=== PATIENT | female | born 1995 | race Caucasian/White ===

== ENCOUNTER 2017-12-17 19:51 | Inpatient (IN) | payer OTHER ==
[2017-12-17] MEDS ORDERED: Carboprost Tromethamine 250 MCG/1 ML Amp IM PRN (20:24)
[2017-12-17] MEDS ORDERED: Lidocaine 1% 50 ML MDV INJECT PRN (20:24)
[2017-12-17] MEDS ORDERED: Tranexamic Acid 1,000 MG in Sodium Chloride 0.9% 100 ML IV PRN (20:24)
[2017-12-17] MEDS ORDERED: Sodium Chloride 0.9% 2.5 ML Syringe FLUSH PRN (20:24)
[2017-12-17] MEDS ORDERED: Water For Irrigation,Sterile 1,000 ML Container IRR PRN (20:24)
[2017-12-17] MEDS ORDERED: Ampicillin 2 GM in Sodium Chloride 0.9% 100 ML IV ONE (20:24)
[2017-12-17] MEDS ORDERED: Misoprostol 200 MCG Tab PO PRN (20:24)
[2017-12-17] MEDS ORDERED: Methylergonovine 0.2 MG/1 ML Amp IM PRN (20:24)
[2017-12-17] MEDS ORDERED: Sodium Chloride 0.9% 10 ML Syringe FLUSH PRN (20:24)
[2017-12-17] MEDS ORDERED: Nalbuphine 10 MG/1 ML Vial IVPUSH PRN (20:24)
[2017-12-17] MEDS ORDERED: Butorphanol 1 MG/ML SDV IVPUSH PRN (20:24)
[2017-12-17] MEDS ORDERED: Terbutaline 1 MG/ML SDV SUBCUT PRN (20:27)
[2017-12-17] MEDS ORDERED: Misoprostol 25 MCG (1/4 of 100 MCG) Tab VAG PRN (20:27)
[2017-12-17] MEDS ORDERED: Misoprostol 25 MCG (1/4 of 100 MCG) Tab VAG ONE (20:30)
[2017-12-17] MEDS ORDERED: Lactated Ringers 1,000 ML IV SCH (20:30)
[2017-12-18] MEDS: Ampicillin 1 GM in Sodium Chloride 0.9% 50 ML IV SCH ×3 (01:29→09:29)
[2017-12-18] MEDS ORDERED: Misoprostol 25 MCG (1/4 of 100 MCG) Tab VAG PRN (03:00)
[2017-12-18] MEDS ORDERED: Oxytocin/0.9 % Sodium Chloride 30 UNIT/500 ML BAG IV SCH (05:00)
[2017-12-18] MEDS ORDERED: fentaNYL 100 MCG/2 ML SDV ONE (10:26)
--- NOTE | 2017-12-18 11:27 | PCM.PREANE ---
Preanesthetic Assessment - Procedure Proposed Procedure: labor epidural placement and dosing - Anesthesia/Transfusion/Family Hx Anesthesia History: Prior Anesthesia Without Reaction Family History of Anesthesia Reaction: No Transfusion History: No Prior Transfusion(s) Additional History: Active labor; s/p single dose stadol - not helpful per patient; present - Review of Systems General: Other (active labor) Pulmonary: No Symptoms Cardiovascular: No Symptoms Gastrointestinal: No Symptoms, Other (GERD of ) Neurological: Other (labor) Other: Reports: None - Physical Assessment NPO Status Date: 12/17/17 NPO Status Time: 23:00 Height: 5 ft 5 in Weight: 160 lb ASA Class: 2 Mental Status: Alert & Oriented x3 Airway Class: Mallampati = 1 Dentition: Reports: Normal Dentition Thyro-Mental Finger Breadths: 3 Mouth Opening Finger Breadths: 3 ROM/Head Extension: Full Lungs: Clear to Auscultation, Normal Respiratory Effort Cardiovascular: Regular Rate, Regular Rhythm, No Murmurs - Lab Values: Laboratory Last Values WBC 6.73 K/uL (4.0-11.0) 12/17/17 20:37 RBC 3.92 M/uL (4.30-5.90) L 12/17/17 20:37 Hgb 12.4 g/dL (12.0-16.0) 12/17/17 20:37 Hct 35.5 % (36.0-46.0) L 12/17/17 20:37 MCV 90.6 fL (80.0-98.0) 12/17/17 20:37 MCH 31.6 pg (27.0-32.0) 12/17/17 20:37 MCHC 34.9 g/dL (31.0-37.0) 12/17/17 20:37 RDW Std Deviation 41.9 fl (28.0-62.0) 12/17/17 20:37 RDW Coeff of Roosevelt 13 % (11.0-15.0) 12/17/17 20:37 Plt Count 204 K/uL (150-400) 12/17/17 20:37 MPV 10.60 fL (7.40-12.00) 12/17/17 20:37 Nucleated RBC % 0.0 /100WBC 12/17/17 20:37 Nucleated RBCs # 0 K/uL 12/17/17 20:37 Blood Type A POSITIVE 12/17/17 20:37 Antibody Screen NEGATIVE 12/17/17 20:37 - Allergies Allergies/Adverse Reactions: Allergies Allergy/AdvReac Type Severity Reaction Status Date / Time No Known Allergies Allergy Verified 12/17/17 20:24 - Blood Blood Available: No Product(s) Available: None - Anesthesia Plan Pre-Op Medication Ordered: Other (stadol) - Acknowledgements Anesthesia Type Planned: Epidural Pt an Appropriate Candidate for the Planned Anesthesia: Yes Alternatives and Risks of Anesthesia Discussed w Pt/Guardian: Yes Pt/Guardian Understands and Agrees with Anesthesia Plan: Yes PreAnesthesia Questionnaire HEENT History: Reports: None Respiratory History: Reports: None Gastrointestinal History: Reports: None [employer] History: Reports: None Musculoskeletal History: Reports: None Neurological History: Reports: None Psychiatric History: Reports: None Endocrine/Metabolic History: Reports: None Hematologic History: Reports: None Immunologic History: Reports: None Oncologic (Cancer) History: Reports: None Dermatologic History: Reports: None - Infectious Disease History Infectious Disease History: Reports: Chicken Pox - Past Surgical History Head Surgeries/Procedures: Reports: None - SUBSTANCE USE Smoking Status *Q: Never Smoker Second Hand Smoke Exposure: No Recreational Drug Use History: No - CURRENT (IN HOUSE) MEDS Current Meds: Current Medications Butorphanol Tartrate (Stadol) 1 mg IVPUSH Q1H PRN PRN Reason: Pain Last Admin: 12/18/17 09:13 Dose: 1 mg Carboprost Tromethamine (Hemabate Ds) 250 mcg IM ASDIRECTED PRN PRN Reason: Post Hemorrhage Lactated Ringer's (Ringers, Lactated) 1,000 mls @ 150 mls/hr IV ASDIRECTED NICOLAS Last Admin: 12/18/17 10:11 Dose: 200 mls/hr Tranexamic Acid 1,000 mg/ (Sodium Chloride) 110 mls @ 660 mls/hr IV ONETIME PRN PRN Reason: Bleeding Oxytocin/Sodium Chloride (Oxytocin 30 Unit/500 Ml-Ns) 30 unit in 500 mls @ 2 mls/hr IV TITRATE NICOLAS; Protocol Last Titration: 12/18/17 08:45 Dose: 4 munits/min, 4 mls/hr Ampicillin Sodium 1 gm/ Sodium (Chloride) 50 mls @ 100 mls/hr IV Q4H NICOLAS Last Admin: 12/18/17 09:29 Dose: 100 mls/hr Lidocaine HCl (Xylocaine 1%) 50 ml INJECT .ONCE PRN PRN Reason: Laceration repair Methylergonovine Maleate (Methergine) 0.2 mg IM ASDIRECTED PRN PRN Reason: Post Hemorrhage Misoprostol (Cytotec) 200 mcg PO .ONCE PRN PRN Reason: Post Hemorrhage Misoprostol (Cytotec) 25 mcg VAG Q6H PRN PRN Reason: Other Last Admin: 12/18/17 03:25 Dose: 25 mcg Nalbuphine HCl (Nubain) 10 mg IVPUSH Q1H PRN PRN Reason: Pain (severe 7-10) Sodium Chloride (Saline Flush) 10 ml FLUSH ASDIRECTED PRN PRN Reason: Keep Vein Open Sodium Chloride (Saline Flush) 2.5 ml FLUSH ASDIRECTED PRN PRN Reason: Keep Vein Open Sterile Water (Sterile Water For Irrigation) 1,000 ml IRR ASDIRECTED PRN PRN Reason: delivery Terbutaline Sulfate (Brethine) 0.25 mg SUBCUT ASDIRECTED PRN PRN Reason: Tacysystole Discontinued Medications Fentanyl (Sublimaze) Confirm Administered Dose 100 mcg .ROUTE .STK-MED ONE Stop: 12/18/17 10:27 Ampicillin Sodium 2 gm/ Sodium (Chloride) 100 mls @ 200 mls/hr IV ONETIME ONE Stop: 12/17/17 20:53 Last Admin: 12/17/17 21:17 Dose: 200 mls/hr Fentanyl/Bupivacaine HCl (Kynweknp-Zdtgq-Wj 2 Mcg/Ml-0.125%) Confirm Administered Dose 100 mls @ as directed EP .STK-MED ONE Stop: 12/18/17 10:28 Misoprostol (Cytotec) 25 mcg VAG ONETIME ONE Stop: 12/17/17 20:31 Last Admin: 12/17/17 21:10 Dose: 25 mcg
--- NOTE | 2017-12-18 11:32 | PCM.SN ---
- Free Text/Narrative Note: See anesthesia record, [facility] recorded vitals and notes per RN during my bedside attendance. Pump settings and start of continuous infusion done. Lobor determined complete dilation and call to obstetrition made by RN. Stable with fluid iv bolus due to a few minutes of mild nausea and mild BP drop with clearing of effect.
--- NOTE | 2017-12-18 12:18 | PCM.DEL ---
L & D Note - General Info Date of Service: 12/18/17 Mother's Due Date: 12/16/17 - Delivery Note Labor: Induced by ARM, Induced by Oxytocin Cervical Ripening Method: Misoprostil Delivery Outcome: Livebirth Delivery Method: Spontaneous Vaginal Delivery-Single Presentation: Left Occiput Anterior (STEFFANY) Nuchal Cord: None Prep: Povidone-Iodine (Betadine, Other Anesthesia Type: Epidural Amniotic Fluid Description: Clear Episiotomy Type: None Laceration: None Placenta: Intact, Spontaneous Cord: 3 Vessels Estimated Blood Loss: 200 Resuscitation Needed: No : Bulb Syringe Score 1 min: 10 Score 5 min: 10 Second Stage Interventions: Reports: Encouragement Given, Pushing Effectively, Pushing, Pulls Own Legs Back - Patient Data Weight - Most Recent: 72.575 kg Lab Results Last 24 Hours: Laboratory Results - last 24 hr 12/17/17 12/17/17 Range/Units 20:37 20:37 WBC 6.73 (4.0-11.0) K/uL RBC 3.92 L (4.30-5.90) M/uL Hgb 12.4 (12.0-16.0) g/dL Hct 35.5 L (36.0-46.0) % MCV 90.6 (80.0-98.0) fL MCH 31.6 (27.0-32.0) pg MCHC 34.9 (31.0-37.0) g/dL RDW Std Deviation 41.9 (28.0-62.0) fl RDW Coeff of Roosevelt 13 (11.0-15.0) % Plt Count 204 (150-400) K/uL MPV 10.60 (7.40-12.00) fL Nucleated RBC % 0.0 /100WBC Nucleated RBCs # 0 K/uL Blood Type A POSITIVE Antibody Screen NEGATIVE Med Orders - Current: Current Medications Butorphanol Tartrate (Stadol) 1 mg IVPUSH Q1H PRN PRN Reason: Pain Last Admin: 12/18/17 09:13 Dose: 1 mg Carboprost Tromethamine (Hemabate Ds) 250 mcg IM ASDIRECTED PRN PRN Reason: Post Hemorrhage Lactated Ringer's (Ringers, Lactated) 1,000 mls @ 150 mls/hr IV ASDIRECTED NICOLAS Last Admin: 12/18/17 10:11 Dose: 200 mls/hr Tranexamic Acid 1,000 mg/ (Sodium Chloride) 110 mls @ 660 mls/hr IV ONETIME PRN PRN Reason: Bleeding Oxytocin/Sodium Chloride (Oxytocin 30 Unit/500 Ml-Ns) 30 unit in 500 mls @ 2 mls/hr IV TITRATE NICOLAS; Protocol Last Titration: 12/18/17 08:45 Dose: 4 munits/min, 4 mls/hr Ampicillin Sodium 1 gm/ Sodium (Chloride) 50 mls @ 100 mls/hr IV Q4H NICOLAS Last Admin: 12/18/17 09:29 Dose: 100 mls/hr Lidocaine HCl (Xylocaine 1%) 50 ml INJECT .ONCE PRN PRN Reason: Laceration repair Methylergonovine Maleate (Methergine) 0.2 mg IM ASDIRECTED PRN PRN Reason: Post Hemorrhage Misoprostol (Cytotec) 200 mcg PO .ONCE PRN PRN Reason: Post Hemorrhage Misoprostol (Cytotec) 25 mcg VAG Q6H PRN PRN Reason: Other Last Admin: 12/18/17 03:25 Dose: 25 mcg Nalbuphine HCl (Nubain) 10 mg IVPUSH Q1H PRN PRN Reason: Pain (severe 7-10) Sodium Chloride (Saline Flush) 10 ml FLUSH ASDIRECTED PRN PRN Reason: Keep Vein Open Sodium Chloride (Saline Flush) 2.5 ml FLUSH ASDIRECTED PRN PRN Reason: Keep Vein Open Sterile Water (Sterile Water For Irrigation) 1,000 ml IRR ASDIRECTED PRN PRN Reason: delivery Terbutaline Sulfate (Brethine) 0.25 mg SUBCUT ASDIRECTED PRN PRN Reason: Tacysystole Discontinued Medications Fentanyl (Sublimaze) Confirm Administered Dose 100 mcg .ROUTE .STK-MED ONE Stop: 12/18/17 10:27 Ampicillin Sodium 2 gm/ Sodium (Chloride) 100 mls @ 200 mls/hr IV ONETIME ONE Stop: 12/17/17 20:53 Last Admin: 12/17/17 21:17 Dose: 200 mls/hr Fentanyl/Bupivacaine HCl (Toyjrbxv-Yxbct-Mj 2 Mcg/Ml-0.125%) Confirm Administered Dose 100 mls @ as directed EP .STK-MED ONE Stop: 12/18/17 10:28 Misoprostol (Cytotec) 25 mcg VAG ONETIME ONE Stop: 12/17/17 20:31 Last Admin: 12/17/17 21:10 Dose: 25 mcg - Problem List & Annotations (1) Vaginal delivery SNOMED Code(s): 935303394 Code(s): O80 - ENCOUNTER FOR FULL-TERM UNCOMPLICATED DELIVERY Status: Acute Current Visit: Yes - Problem List Review Problem List Initiated/Reviewed/Updated: Yes - My Orders Last 24 Hours: My Active Orders 12/17/17 20:24 Patient Status [ADT] Routine Heart Tones [RC] CONTINUOUS Non Stress Test [RC] PER UNIT ROUTINE May Shower [RC] ASDIRECTED Notify Provider [RC] PRN Up ad Zhane [RC] ASDIRECTED Vaginal Exam [RC] PRN Vital Signs [RC] PER UNIT ROUTINE Butorphanol [Stadol] 1 mg IVPUSH Q1H PRN Carboprost Tromethamine [Hemabate DS] 250 mcg IM ASDIRECTED PRN Lidocaine 1% [Xylocaine 1%] 50 ml INJECT .ONCE PRN Methylergonovine [Methergine] 0.2 mg IM ASDIRECTED PRN Misoprostol [Cytotec] 200 mcg PO .ONCE PRN Nalbuphine [Nubain] 10 mg IVPUSH Q1H PRN Sodium Chloride 0.9% [Saline Flush] 10 ml FLUSH ASDIRECTED PRN Sodium Chloride 0.9% [Saline Flush] 2.5 ml FLUSH ASDIRECTED PRN Tranexamic Acid [Cyklokapron] 1,000 mg Sodium Chloride 0.9% [Normal Saline] 100 ml IV ONETIME Water For Irrigation,Sterile [Sterile Water for Irrigation] 1,000 ml IRR ASDIRECTED PRN Scalp Electrode [WOMSER] Per Unit Routine Peripheral IV Insertion Adult [OM.PC] Routine Resuscitation Status Routine 12/17/17 20:27 Terbutaline [Brethine] 0.25 mg SUBCUT ASDIRECTED PRN 12/17/17 20:28 Communication Order [RC] ASDIRECTED Communication Order [RC] ASDIRECTED Communication Order [RC] ASDIRECTED Notify Provider [RC] PRN Notify Provider [RC] PRN Notify Provider [RC] STAT Oxygen Therapy [RC] ASDIRECTED Vaginal Exam [RC] PRN 12/17/17 20:30 Lactated Ringers [Ringers, Lactated] 1,000 ml IV ASDIRECTED Medication Administration Instruction [OM.PC] Q3H 12/17/17 Dinner Clear Liquid Diet [DIET] 12/18/17 01:30 Ampicillin 1 gm Sodium Chloride 0.9% [Normal Saline] 50 ml IV Q4H 12/18/17 03:00 Misoprostol [Cytotec] 25 mcg VAG Q6H PRN 12/18/17 05:00 Oxytocin/0.9 % Sodium Chloride [Oxytocin 30 Unit/500 ML-NS] 30 unit in 500 ml IV TITRATE
[2017-12-18] MEDS ORDERED: Ibuprofen 400 MG Tab PO PRN (12:22)
[2017-12-18] MEDS ORDERED: Lanolin 100% Cream 7 GM Tube TOP PRN (12:22)
[2017-12-18] MEDS ORDERED: Benzocaine/Menthol 20%-0.5% Spray 78 GM Cannister TOP PRN (12:22)
[2017-12-18] MEDS ORDERED: Acetaminophen 500 MG Tab PO PRN ×2 (12:22)
[2017-12-18] MEDS ORDERED: Witch Hazel Medicated Pads 40/Jar TOP PRN (12:22)
[2017-12-18] MEDS ORDERED: Docusate Sodium 100 MG Cap PO PRN (12:22)
[2017-12-18] MEDS ORDERED: oxyCODONE 5 MG Tab PO PRN (12:22)
[2017-12-18] MEDS ORDERED: Ibuprofen 800 MG Tab PO PRN (12:22)
[2017-12-18] MEDS ORDERED: Methylergonovine 0.2 MG/1 ML Amp IM PRN (12:22)
[2017-12-18] MEDS ORDERED: Bisacodyl 10 MG Supp RECTAL PRN (12:22)
--- NOTE | 2017-12-18 13:15 | OR ---
SURGEON: Birgit Maynard M.D. DATE OF PROCEDURE: 12/18/2017 PREOPERATIVE DIAGNOSIS: A 40 and 2/7th weeks intrauterine , postdates induction. POSTOPERATIVE DIAGNOSIS: A 40 and 2/7th weeks intrauterine , postdates induction. PROCEDURE: Cytotec and Pitocin induction of labor, artificial rupture of membranes, group B strep prophylaxis, term spontaneous vaginal delivery. ANESTHESIA: Epidural. ESTIMATED BLOOD LOSS: Less than 300 mL. FINDINGS: Live born female, score 10 and 10. Weight is pending at the time of dictation. Placenta spontaneous, Schultze intact, with 3 vessels. Perineum intact. COMPLICATIONS: None known. DISPOSITION: Mother and baby are in LDRP in good condition. BRIEF HISTORY: This is a 22-year-old female. She is -0-0-1. She presents to Labor and Delivery with a Wolf score of 2 for induction of labor 2 days past her EDC. She is group B strep positive. She was started on ampicillin. She received 2 doses of Cytotec vaginally. By morning, she was 2 cm, 60% effaced, -2 station. Artificial rupture of membranes was performed. Clear fluid was noted. Soon thereafter, intense contractions began. She was started on Pitocin. She received an epidural for pain control. She progressed to complete. DESCRIPTION OF PROCEDURE: With the patient in dorsal lithotomy position, the patient pushed over 20 minutes time period to a 5+ station, at which time the head was delivered spontaneously and atraumatically over the perineum with support in the left occiput anterior position. Once the head had restituted, the anterior shoulder was delivered without difficulty. There was a cord behind the neck, but not a complete nuchal cord. The posterior shoulder was then delivered with subsequent delivery of the infant's shoulders and body. The was bulb suctioned by nose and mouth. The cord was clamped x2 and cut after it had ceased to pulsate and the infant was handed to the mother in the presence of the nurse attending delivery. The is a liveborn female, score 10 and 10. Weight is pending at the time of dictation. Cord blood was collected for cord ABGs as well as routine cord blood sampling. Pitocin was initiated after delivery of the infant to assist with delivery of the placenta, which was delivered spontaneously. Schultze intact with 3 vessels. Upon inspection of the pelvis and perineum, there were no periurethral, vaginal sidewall, cervical, rectal, or perineal lacerations. EBL was less than 300 mL. There were no known complications. Mother and baby remained in LDRP in good condition. SATURNINO GASPAR /[id number]
--- NOTE | 2017-12-19 05:11 | PCM48HPAN ---
Post Anesthesia Note - EVALUATION WITHIN 48HRS OF ANESTHETIC Vital Signs in Normal Range: Yes Patient Participated in Evaluation: Yes Respiratory Function Stable: Yes Airway Patent: Yes Cardiovascular Function Stable: Yes Hydration Status Stable: Yes Pain Control Satisfactory: Yes Nausea and Vomiting Control Satisfactory: Yes Mental Status Recovered: Yes Resp Rate: 18 - COMMENTS/OBSERVATIONS Free Text/Narrative:: Catheter removed by RN. Patient very happy with baby in arms when I visited her later yesterday afternoon.
--- NOTE | 2017-12-19 08:03 | PCM.PNPP ---
<Kate Cunha - Last Filed: 12/19/17 08:04> - General Info Date of Service: 12/19/17 Functional Status: Reports: Pain Controlled, Tolerating Diet, Ambulating, Urinating - Review of Systems General: Denies: Fever, Weakness, Fatigue Pulmonary: Denies: Shortness of Breath, Pleuritic Chest Pain, Cough Cardiovascular: Denies: Chest Pain, Palpitations, Dyspnea on Exertion Gastrointestinal: Denies: Abdominal Pain Genitourinary: Denies: Dysuria - General Info Date of Service: 12/19/17 - Patient Data Vital Signs - Most Recent: Last Vital Signs Temp 36.5 C 12/19/17 07:24 Pulse 69 12/19/17 07:24 Resp 14 12/19/17 07:24 BP 123/82 12/19/17 07:24 Pulse Ox 97 12/19/17 07:24 Weight - Most Recent: 72.575 kg Lab Results - Last 24 Hours: Laboratory Results - last 24 hr 12/19/17 Range/Units 05:03 Hgb 11.4 L (12.0-16.0) g/dL Hct 33.1 L (36.0-46.0) % Med Orders - Current: Current Medications Acetaminophen (Tylenol Extra Strength) 500 mg PO Q4H PRN PRN Reason: Pain Acetaminophen (Tylenol Extra Strength) 1,000 mg PO Q4H PRN PRN Reason: Pain Benzocaine/Menthol (Dermoplast Pain Relief 20%-0.5% Johnson) 78 gm TOP ASDIRECTED PRN PRN Reason: Perineal Comfort Measure Bisacodyl (Dulcolax) 10 mg RECTAL .ONCE PRN PRN Reason: Constipation Docusate Sodium (Colace) 100 mg PO BID PRN PRN Reason: Constipation Emollient Ointment (Lansinoh Hpa) 0 gm TOP ASDIRECTED PRN PRN Reason: Sore Nipples Ibuprofen (Motrin) 400 mg PO Q4H PRN PRN Reason: Pain Ibuprofen (Motrin) 800 mg PO Q6H PRN PRN Reason: Pain Last Admin: 12/19/17 07:38 Dose: 800 mg Methylergonovine Maleate (Methergine) 0.2 mg IM .ONCE PRN PRN Reason: Excessive Vaginal Bleeding Oxycodone HCl (Oxycodone) 5 mg PO Q2H PRN PRN Reason: Pain Witch Verito (Tucks) 1 pad TOP ASDIRECTED PRN PRN Reason: comfort care Discontinued Medications Butorphanol Tartrate (Stadol) 1 mg IVPUSH Q1H PRN PRN Reason: Pain Last Admin: 12/18/17 09:13 Dose: 1 mg Carboprost Tromethamine (Hemabate Ds) 250 mcg IM ASDIRECTED PRN PRN Reason: Post Hemorrhage Fentanyl (Sublimaze) Confirm Administered Dose 100 mcg .ROUTE .STK-MED ONE Stop: 12/18/17 10:27 Ampicillin Sodium 2 gm/ Sodium (Chloride) 100 mls @ 200 mls/hr IV ONETIME ONE Stop: 12/17/17 20:53 Last Admin: 12/17/17 21:17 Dose: 200 mls/hr Lactated Ringer's (Ringers, Lactated) 1,000 mls @ 150 mls/hr IV ASDIRECTED NICOLAS Last Admin: 12/18/17 10:11 Dose: 200 mls/hr Tranexamic Acid 1,000 mg/ (Sodium Chloride) 110 mls @ 660 mls/hr IV ONETIME PRN PRN Reason: Bleeding Oxytocin/Sodium Chloride (Oxytocin 30 Unit/500 Ml-Ns) 30 unit in 500 mls @ 2 mls/hr IV TITRATE NICOLAS; Protocol Last Titration: 12/18/17 12:06 Dose: 999 mls/hr Ampicillin Sodium 1 gm/ Sodium (Chloride) 50 mls @ 100 mls/hr IV Q4H [facility] Last Admin: 12/18/17 09:29 Dose: 100 mls/hr Fentanyl/Bupivacaine HCl (Pnfbgvvc-Fgoed-Cv 2 Mcg/Ml-0.125%) Confirm Administered Dose 100 mls @ as directed EP .STK-MED ONE Stop: 12/18/17 10:28 Lidocaine HCl (Xylocaine 1%) 50 ml INJECT .ONCE PRN PRN Reason: Laceration repair Methylergonovine Maleate (Methergine) 0.2 mg IM ASDIRECTED PRN PRN Reason: Post Hemorrhage Misoprostol (Cytotec) 200 mcg PO .ONCE PRN PRN Reason: Post Hemorrhage Misoprostol (Cytotec) 25 mcg VAG ONETIME ONE Stop: 12/17/17 20:31 Last Admin: 12/17/17 21:10 Dose: 25 mcg Misoprostol (Cytotec) 25 mcg VAG Q6H PRN PRN Reason: Other Last Admin: 12/18/17 03:25 Dose: 25 mcg Nalbuphine HCl (Nubain) 10 mg IVPUSH Q1H PRN PRN Reason: Pain (severe 7-10) Sodium Chloride (Saline Flush) 10 ml FLUSH ASDIRECTED PRN PRN Reason: Keep Vein Open Sodium Chloride (Saline Flush) 2.5 ml FLUSH ASDIRECTED PRN PRN Reason: Keep Vein Open Sterile Water (Sterile Water For Irrigation) 1,000 ml IRR ASDIRECTED PRN PRN Reason: delivery Last Admin: 12/18/17 12:33 Dose: 1,000 ml Terbutaline Sulfate (Brethine) 0.25 mg SUBCUT ASDIRECTED PRN PRN Reason: Tacysystole - Infant Interaction Infant Disposition, : [place] in Room with Family Interaction: Holding Infant Infant Feeding: Breastfed ; Nursed Well Support Person: Significant Other - Recovery Exam Fundal Tone: Firm Fundal Level: At Umbilicus Fundal Placement: Midline Lochia Amount: Small Lochia Color: Rubra/Red Perineum Description: Intact, Minimal Bruising/Swelling Episiotomy/Laceration: None Bladder Status: Voiding - Exam General: Alert, Oriented Neck: Supple Lungs: Clear to Auscultation, Normal Respiratory Effort Cardiovascular: Regular Rate, Regular Rhythm GI/Abdominal Exam: Normal Bowel Sounds, No Distention Extremities: Normal Inspection, Pedal Edema (trace) - Problem List & Annotations (1) Vaginal delivery SNOMED Code(s): 404442903 Code(s): O80 - ENCOUNTER FOR FULL-TERM UNCOMPLICATED DELIVERY Status: Acute Current Visit: Yes - Problem List Review Problem List Initiated/Reviewed/Updated: Yes - Assessment Assessment:: PPD#1 s/p . Minimal pain and lochia. Breast feeding well. Discharge home today. - Plan Plan:: Discharge instructions reviewed. Pelvic rest for 6 weeks. Can use OTC ibuprofen/ tylenol as needed for pain. Instructed patient to call if she develops fever greater than 101 or bleeding through a large pad an hour. F/U with [facility] in 6 weeks. <Birgit Maynard - Last Filed: 12/19/17 08:40> - Patient Data Vital Signs - Most Recent: Last Vital Signs Temp 36.5 C 12/19/17 07:24 Pulse 69 12/19/17 07:24 Resp 14 12/19/17 07:24 BP 123/82 12/19/17 07:24 Pulse Ox 97 12/19/17 07:24 Lab Results - Last 24 Hours: Laboratory Results - last 24 hr 12/19/17 Range/Units 05:03 Hgb 11.4 L (12.0-16.0) g/dL Hct 33.1 L (36.0-46.0) % Med Orders - Current: Current Medications Acetaminophen (Tylenol Extra Strength) 500 mg PO Q4H PRN PRN Reason: Pain Acetaminophen (Tylenol Extra Strength) 1,000 mg PO Q4H PRN PRN Reason: Pain Benzocaine/Menthol (Dermoplast Pain Relief 20%-0.5% Johnson) 78 gm TOP ASDIRECTED PRN PRN Reason: Perineal Comfort Measure Bisacodyl (Dulcolax) 10 mg RECTAL .ONCE PRN PRN Reason: Constipation Docusate Sodium (Colace) 100 mg PO BID PRN PRN Reason: Constipation Emollient Ointment (Lansinoh Hpa) 0 gm TOP ASDIRECTED PRN PRN Reason: Sore Nipples Ibuprofen (Motrin) 400 mg PO Q4H PRN PRN Reason: Pain Ibuprofen (Motrin) 800 mg PO Q6H PRN PRN Reason: Pain Last Admin: 12/19/17 07:38 Dose: 800 mg Methylergonovine Maleate (Methergine) 0.2 mg IM .ONCE PRN PRN Reason: Excessive Vaginal Bleeding Oxycodone HCl (Oxycodone) 5 mg PO Q2H PRN PRN Reason: Pain Witch Verito (Tucks) 1 pad TOP ASDIRECTED PRN PRN Reason: comfort care Discontinued Medications Butorphanol Tartrate (Stadol) 1 mg IVPUSH Q1H PRN PRN Reason: Pain Last Admin: 12/18/17 09:13 Dose: 1 mg Carboprost Tromethamine (Hemabate Ds) 250 mcg IM ASDIRECTED PRN PRN Reason: Post Hemorrhage Fentanyl (Sublimaze) Confirm Administered Dose 100 mcg .ROUTE .STK-MED ONE Stop: 12/18/17 10:27 Ampicillin Sodium 2 gm/ Sodium (Chloride) 100 mls @ 200 mls/hr IV ONETIME ONE Stop: 12/17/17 20:53 Last Admin: 12/17/17 21:17 Dose: 200 mls/hr Lactated Ringer's (Ringers, Lactated) 1,000 mls @ 150 mls/hr IV ASDIRECTED NICOLAS Last Admin: 12/18/17 10:11 Dose: 200 mls/hr Tranexamic Acid 1,000 mg/ (Sodium Chloride) 110 mls @ 660 mls/hr IV ONETIME PRN PRN Reason: Bleeding Oxytocin/Sodium Chloride (Oxytocin 30 Unit/500 Ml-Ns) 30 unit in 500 mls @ 2 mls/hr IV TITRATE NICOLAS; Protocol Last Titration: 12/18/17 12:06 Dose: 999 mls/hr Ampicillin Sodium 1 gm/ Sodium (Chloride) 50 mls @ 100 mls/hr IV Q4H [facility] Last Admin: 12/18/17 09:29 Dose: 100 mls/hr Fentanyl/Bupivacaine HCl (Dvqidsmc-Sdicu-Zn 2 Mcg/Ml-0.125%) Confirm Administered Dose 100 mls @ as directed EP .STK-MED ONE Stop: 12/18/17 10:28 Lidocaine HCl (Xylocaine 1%) 50 ml INJECT .ONCE PRN PRN Reason: Laceration repair Methylergonovine Maleate (Methergine) 0.2 mg IM ASDIRECTED PRN PRN Reason: Post Hemorrhage Misoprostol (Cytotec) 200 mcg PO .ONCE PRN PRN Reason: Post Hemorrhage Misoprostol (Cytotec) 25 mcg VAG ONETIME ONE Stop: 12/17/17 20:31 Last Admin: 12/17/17 21:10 Dose: 25 mcg Misoprostol (Cytotec) 25 mcg VAG Q6H PRN PRN Reason: Other Last Admin: 12/18/17 03:25 Dose: 25 mcg Nalbuphine HCl (Nubain) 10 mg IVPUSH Q1H PRN PRN Reason: Pain (severe 7-10) Sodium Chloride (Saline Flush) 10 ml FLUSH ASDIRECTED PRN PRN Reason: Keep Vein Open Sodium Chloride (Saline Flush) 2.5 ml FLUSH ASDIRECTED PRN PRN Reason: Keep Vein Open Sterile Water (Sterile Water For Irrigation) 1,000 ml IRR ASDIRECTED PRN PRN Reason: delivery Last Admin: 12/18/17 12:33 Dose: 1,000 ml Terbutaline Sulfate (Brethine) 0.25 mg SUBCUT ASDIRECTED PRN PRN Reason: Tacysystole - Problem List & Annotations (1) Vaginal delivery SNOMED Code(s): 726279011 Code(s): O80 - ENCOUNTER FOR FULL-TERM UNCOMPLICATED DELIVERY Status: Acute Current Visit: Yes - My Orders Last 24 Hours: My Active Orders 12/18/17 12:22 Patient Status [ADT] Routine May Shower [RC] ASDIRECTED Up ad Zhane [RC] ASDIRECTED Vital Signs [RC] PER UNIT ROUTINE Acetaminophen [Tylenol Extra Strength] 1,000 mg PO Q4H PRN Acetaminophen [Tylenol Extra Strength] 500 mg PO Q4H PRN Benzocaine/Menthol [Dermoplast Pain Relief 20%-0.5% Johnson] 78 gm TOP ASDIRECTED PRN Bisacodyl [Dulcolax] 10 mg RECTAL .ONCE PRN Docusate Sodium [Colace] 100 mg PO BID PRN Ibuprofen [Motrin] 400 mg PO Q4H PRN Ibuprofen [Motrin] 800 mg PO Q6H PRN Lanolin [Lansinoh HPA] See Dose Instructions TOP ASDIRECTED PRN Methylergonovine [Methergine] 0.2 mg IM .ONCE PRN Witch Verito [Tucks] 1 pad TOP ASDIRECTED PRN oxyCODONE 5 mg PO Q2H PRN Assess Lochia [WOMSER] Per Unit Routine Assess Uterine Involution [WOMSER] Per Unit Routine Perineal Care [OM.PC] Per Unit Routine Peripheral IV Discontinue [OM.PC] Routine Resuscitation Status Routine 12/18/17 Lunch Regular Diet [DIET] - Plan Plan:: agree with above, patient was seen and examined by me.
[2017-12-19] MEDS ORDERED: Measles, Mumps & Rubella Vaccine 0.5 ML SDV SUBCUT ONE (09:01)
== END 2017-12-19 13:30 | disposition home or self-care (01) | DRG 775 ==
LOC: MW.OBCHECK 19:51 → MW.OB 19:53 → MW.OBCHECK 20:24 → MW.OB 20:24 → OBSVTOIN 12-18 12:06 → MW.OB 12-18 16:19
PROVIDERS: ADMIT Obstetrics & Gynecology; ATTEND Obstetrics & Gynecology
PROC: 10E0XZZ Delivery of Products of Conception, External Approach (ICD-10-PCS; principal; 2017-12-18)
PROC: 3E0P7VZ Introduction of Hormone into Female Reproductive, Via Natural or Artificial Opening (ICD-10-PCS; 2017-12-18)
PROC: 3E033VJ Introduction of Other Hormone into Peripheral Vein, Percutaneous Approach (ICD-10-PCS; 2017-12-18)
PROC: 10907ZC Drainage of Amniotic Fluid, Therapeutic from Products of Conception, Via Natural or Artificial Opening (ICD-10-PCS; 2017-12-18)
DX: O48.0 Post-term pregnancy (principal); O99.824 Streptococcus B carrier state complicating childbirth; Z3A.40 40 weeks gestation of pregnancy; Z37.0 Single live birth
CPT/HCPCS: 36415; 51702; 59025; 59409; 85014; 85018; 85027; 86850; 86900; 86901; 90471; 90707; A9270-GY; J0290; J0595; J2590; J3010; J7030; J7050; J7120

== ENCOUNTER 2020-02-24 03:41 | Inpatient (IN) | payer SELFPAY ==
[2020-02-24] MEDS: Lactated Ringers 1,000 ML IV SCH ×3 (05:18→07:51)
[2020-02-24] MEDS ORDERED: Nalbuphine 10 MG/1 ML Vial IVPUSH PRN (05:24)
[2020-02-24] MEDS ORDERED: Sodium Chloride 0.9% 10 ML SDV IV PRN (05:24)
[2020-02-24] MEDS ORDERED: Tranexamic Acid 1,000 MG in Sodium Chloride 0.9% 100 ML IV PRN ×2 (05:24→11:36)
[2020-02-24] MEDS ORDERED: Water For Irrigation,Sterile 1,000 ML Container IRR PRN (05:24)
[2020-02-24] MEDS ORDERED: Methylergonovine 0.2 MG/1 ML Amp IM PRN ×2 (05:24→11:36)
[2020-02-24] MEDS ORDERED: Lidocaine 1% 50 ML MDV INJECT PRN (05:24)
[2020-02-24] MEDS ORDERED: Sodium Chloride 0.9% 10 ML Syringe FLUSH PRN (05:24)
[2020-02-24] MEDS ORDERED: Carboprost Tromethamine 250 MCG/1 ML Amp IM PRN (05:24)
[2020-02-24] MEDS ORDERED: Misoprostol 200 MCG Tab PO PRN (05:24)
[2020-02-24] MEDS ORDERED: Butorphanol 1 MG/ML SDV IVPUSH PRN (05:24)
[2020-02-24] MEDS ORDERED: Sodium Chloride 0.9% 2.5 ML Syringe FLUSH PRN (05:24)
[2020-02-24] MEDS ORDERED: Oxytocin/0.9 % Sodium Chloride 30 UNIT/500 ML BAG IV SCH ×2 (05:30→09:15)
[2020-02-24] MEDS ORDERED: ePHEDrine 50 MG/ML SDV ONE (06:11)
--- NOTE | 2020-02-24 07:00 | PCM.PREANE ---
Preanesthetic Assessment - Procedure Proposed Procedure: placement of continuous labor epidural - Anesthesia/Transfusion/Family Hx Anesthesia History: Prior Anesthesia Without Reaction Transfusion History: No Prior Transfusion(s) - Review of Systems General: No Symptoms Pulmonary: No Symptoms, Other (not outside of [place] over last 2 weeks) Cardiovascular: No Symptoms Gastrointestinal: Other (GERD with ) - Physical Assessment NPO Status Date: 02/24/20 NPO Status Time: 05:30 Height: 5 ft 5.5 in Weight: 72.121 kg ASA Class: 2 Mental Status: Alert & Oriented x3 Airway Class: Mallampati = 2 Dentition: Reports: Normal Dentition ROM/Head Extension: Full Lungs: Clear to Auscultation, Normal Respiratory Effort Cardiovascular: Regular Rate, Regular Rhythm - Lab Values: Laboratory Last Values WBC 10.49 K/uL (4.0-11.0) 02/24/20 05:48 RBC 4.40 M/uL (4.30-5.90) 02/24/20 05:48 Hgb 13.8 g/dL (12.0-16.0) 02/24/20 05:48 Hct 41.2 % (36.0-46.0) 02/24/20 05:48 MCV 93.6 fL (80.0-98.0) 02/24/20 05:48 MCH 31.4 pg (27.0-32.0) 02/24/20 05:48 MCHC 33.5 g/dL (31.0-37.0) 02/24/20 05:48 RDW Std Deviation 42.4 fl (28.0-62.0) 02/24/20 05:48 RDW Coeff of [place] 12 % (11.0-15.0) 02/24/20 05:48 Plt Count 198 K/uL (150-400) 02/24/20 05:48 MPV 11.40 fL (7.40-12.00) 02/24/20 05:48 Nucleated RBC % 0.0 /100WBC 02/24/20 05:48 Nucleated RBCs # 0 K/uL 02/24/20 05:48 - Allergies Allergies/Adverse Reactions: Allergies Allergy/AdvReac Type Severity Reaction Status Date / Time No Known Allergies Allergy Verified 12/17/17 20:24 - Acknowledgements Anesthesia Type Planned: Epidural Pt an Appropriate Candidate for the Planned Anesthesia: Yes Alternatives and Risks of Anesthesia Discussed w Pt/Guardian: Yes Pt/Guardian Understands and Agrees with Anesthesia Plan: Yes PreAnesthesia Questionnaire HEENT History: Reports: None Respiratory History: Reports: None Gastrointestinal History: Reports: None SERVICE ATTENDANT [place] History: Reports: None Musculoskeletal History: Reports: None Neurological History: Reports: None Psychiatric History: Reports: None Endocrine/Metabolic History: Reports: None Hematologic History: Reports: None Immunologic History: Reports: None Oncologic (Cancer) History: Reports: None Dermatologic History: Reports: None - Infectious Disease History Infectious Disease History: Reports: Chicken Pox - Past Surgical History Head Surgeries/Procedures: Reports: None - HOME MEDS Home Medications: Home Meds Calcium Carbonate [Tums] 500 mg PO 6XDAY PRN 02/24/20 [History] Vits #93/Iron Fum/FA [ Formula Tablet] 1 tab PO DAILY 02/24/20 [History] - CURRENT (IN HOUSE) MEDS Current Meds: Current Medications Butorphanol Tartrate (Stadol) 1 mg IVPUSH Q1H PRN PRN Reason: Pain Carboprost Tromethamine (Hemabate Ds) 250 mcg IM ASDIRECTED PRN PRN Reason: Post Hemorrhage Tranexamic Acid 1,000 mg/ (Sodium Chloride) 110 mls @ 660 mls/hr IV ONETIME PRN PRN Reason: Bleeding Lactated Ringer's (Ringers, Lactated) 1,000 mls @ 150 mls/hr IV ASDIRECTED [facility] Last Admin: 02/24/20 06:25 Dose: 500 mls/hr Oxytocin/Sodium Chloride (Oxytocin 30 Unit/500 Ml-Ns) 30 unit in 500 mls @ 999 mls/hr IV TITRATE [facility] Lidocaine HCl (Xylocaine 1%) 50 ml INJECT ONETIME PRN PRN Reason: Laceration repair Methylergonovine Maleate (Methergine) 0.2 mg IM ASDIRECTED PRN PRN Reason: Post Hemorrhage Misoprostol (Cytotec) 200 mcg PO ONETIME PRN PRN Reason: Post Hemorrhage Nalbuphine HCl (Nubain) 10 mg IVPUSH Q1H PRN PRN Reason: Pain (severe 7-10) Sodium Chloride (Saline Flush) 10 ml FLUSH ASDIRECTED PRN PRN Reason: Keep Vein Open Sodium Chloride (Saline Flush) 2.5 ml FLUSH ASDIRECTED PRN PRN Reason: Keep Vein Open Sodium Chloride (Normal Saline) 10 ml IV ASDIRECTED PRN PRN Reason: IV Use Sterile Water (Sterile Water For Irrigation) 1,000 ml IRR ASDIRECTED PRN PRN Reason: delivery Discontinued Medications Ephedrine Sulfate (Ephedrine Sulfate) Confirm Administered Dose 50 mg .ROUTE [facility]el [facility] ONE Stop: 02/24/20 06:12
[2020-02-24] MEDS ORDERED: Witch Hazel Medicated Pads 40/Jar TOP PRN (11:36)
[2020-02-24] MEDS ORDERED: Lanolin 100% Cream 7 GM Tube TOP PRN (11:36)
[2020-02-24] MEDS ORDERED: Ibuprofen 400 MG Tab PO PRN (11:36)
[2020-02-24] MEDS ORDERED: Docusate Sodium 100 MG Cap PO PRN (11:36)
[2020-02-24] MEDS ORDERED: Benzocaine/Menthol 20%-0.5% Spray 78 GM Cannister TOP PRN (11:36)
[2020-02-24] MEDS ORDERED: Bisacodyl 10 MG Supp RECTAL PRN (11:36)
[2020-02-24] MEDS ORDERED: Acetaminophen 500 MG Tab PO PRN ×2 (11:36)
--- NOTE | 2020-02-24 11:40 | PCM.DEL ---
L & D Note - General Info Date of Service: 02/24/20 Mother's Due Date: 02/14/20 - Delivery Note Labor: Spontaneous, Augmented by ARM, Augmented by Oxytocin Delivery Outcome: Livebirth Delivery Method: Spontaneous Vaginal Delivery-Single Presentation: Left Occiput Anterior (STEFFANY) Nuchal Cord: None (leg cord) Prep: Other Anesthesia Type: Epidural Episiotomy Type: None Laceration: None Placenta: Intact, Spontaneous Cord: 3 Vessels Resuscitation Needed: No [place]: Suctioned Score 1 min: 9 Score 5 min: 9 Delivery Comments (Free Text/Narrative):: Liveborn female, weight is pending. - General Info Date of Service: 02/24/20 - Patient Data Weight - Most Recent: 72.121 kg Lab Results Last 24 Hours: Laboratory Results - last 24 hr 02/24/20 02/24/20 02/24/20 Range/Units 05:08 05:48 05:48 WBC 15.76 H 10.49 (4.0-11.0) K/uL RBC 1.95 L 4.40 (4.30-5.90) M/uL Hgb 6.1 L 13.8 (12.0-16.0) g/dL Hct 18.2 L 41.2 (36.0-46.0) % MCV 93.3 93.6 (80.0-98.0) fL MCH 31.3 31.4 (27.0-32.0) pg MCHC 33.5 33.5 (31.0-37.0) g/dL RDW Std Deviation 42.7 42.4 (28.0-62.0) fl RDW Coeff of [place] 12 12 (11.0-15.0) % Plt Count 317 198 (150-400) K/uL MPV 11.00 11.40 (7.40-12.00) fL Nucleated RBC % 0.0 0.0 /100WBC Nucleated RBCs # 0 0 K/uL Blood Type A POSITIVE Antibody Screen NEGATIVE Med Orders - Current: Current Medications Discontinued Medications Butorphanol Tartrate (Stadol) 1 mg IVPUSH Q1H PRN PRN Reason: Pain Carboprost Tromethamine (Hemabate Ds) 250 mcg IM ASDIRECTED PRN PRN Reason: Post Hemorrhage Ephedrine Sulfate (Ephedrine Sulfate) Confirm Administered Dose 50 mg .ROUTE .STK-MED ONE Stop: 02/24/20 06:12 Last Admin: 02/24/20 07:11 Dose: 5 mg Tranexamic Acid 1,000 mg/ (Sodium Chloride) 110 mls @ 660 mls/hr IV ONETIME PRN PRN Reason: Bleeding Lactated Ringer's (Ringers, Lactated) 1,000 mls @ 150 mls/hr IV ASDIRECTED [facility] Last Admin: 02/24/20 07:51 Dose: 500 mls/hr Oxytocin/Sodium Chloride (Oxytocin 30 Unit/500 Ml-Ns) 30 unit in 500 mls @ 999 mls/hr IV TITRATE [facility] Oxytocin/Sodium Chloride (Oxytocin 30 Unit/500 Ml-Ns) 30 unit in 500 mls @ 2 mls/hr IV TITRATE [facility]; Protocol Last Titration: 02/24/20 10:02 Dose: 4 munits/min, 4 mls/hr Lidocaine HCl (Xylocaine 1%) 50 ml INJECT ONETIME PRN PRN Reason: Laceration repair Methylergonovine Maleate (Methergine) 0.2 mg IM ASDIRECTED PRN PRN Reason: Post Hemorrhage Misoprostol (Cytotec) 200 mcg PO ONETIME PRN PRN Reason: Post Hemorrhage Nalbuphine HCl (Nubain) 10 mg IVPUSH Q1H PRN PRN Reason: Pain (severe 7-10) Sodium Chloride (Saline Flush) 10 ml FLUSH ASDIRECTED PRN PRN Reason: Keep Vein Open Sodium Chloride (Saline Flush) 2.5 ml FLUSH ASDIRECTED PRN PRN Reason: Keep Vein Open Sodium Chloride (Normal Saline) 10 ml IV ASDIRECTED PRN PRN Reason: IV Use Sterile Water (Sterile Water For Irrigation) 1,000 ml IRR ASDIRECTED PRN PRN Reason: delivery - Problem List & Annotations (1) Vaginal delivery SNOMED Code(s): 932304382 Code(s): O80 - ENCOUNTER FOR FULL-TERM UNCOMPLICATED DELIVERY Status: Acute Current Visit: No - Problem List Review Problem List Initiated/Reviewed/Updated: Yes - My Orders Last 24 Hours: My Active Orders 02/24/20 04:16 Non Stress Test [RC] PER UNIT ROUTINE Vaginal Exam [RC] Click to Edit Vital Signs [RC] PER UNIT ROUTINE 02/24/20 05:08 RPR (SYPHILIS SERO) W/ RFLX [REF] Routine 02/24/20 05:24 Heart Tones [RC] CONTINUOUS 02/24/20 11:20 BLOOD GAS ARTERIAL UMBILICAL [BG] Urgent BLOOD GAS VENOUS UMBILICAL [BG] Urgent 02/24/20 11:36 Patient Status [ADT] Routine May Shower [RC] ASDIRECTED Up ad Zhane [RC] ASDIRECTED Vital Signs [RC] PER UNIT ROUTINE Acetaminophen [Tylenol Extra Strength] 1,000 mg PO Q4H PRN Acetaminophen [Tylenol Extra Strength] 500 mg PO Q4H PRN Benzocaine/Menthol [Dermoplast Pain Relief 20%-0.5% [place]] 78 gm TOP ASDIRECTED PRN Docusate Sodium [Colace] 100 mg PO BID PRN Ibuprofen [Motrin] 400 mg PO Q4H PRN Ibuprofen [Motrin] 800 mg PO Q6H PRN Lanolin [Lansinoh HPA] See Dose Instructions TOP ASDIRECTED PRN Methylergonovine [Methergine] 0.2 mg IM ONETIME PRN Tranexamic Acid [Cyklokapron] 1,000 mg Sodium Chloride 0.9% [Normal Saline] 100 ml IV ONETIME bisacodyL [Dulcolax] 10 mg RECTAL ONETIME PRN witch Zara [Tucks] 1 pad TOP ASDIRECTED PRN Assess Lochia [WOMSER] Per Unit Routine Assess Uterine Involution [WOMSER] Per Unit Routine Peripheral IV Discontinue [OM.PC] Routine Resuscitation Status Routine 02/24/20 11:37 Perineal Care [OM.PC] Per Unit Routine 02/24/20 Lunch Regular Diet [DIET] 02/25/20 05:11 HEMOGLOBIN/HEMATOCRIT,HH [HEME] Timed
--- NOTE | 2020-02-24 15:42 | OR ---
SURGEON: Birgit Maynard M.D. DATE OF PROCEDURE: 02/24/2020 PREOPERATIVE DIAGNOSES: 41-3/7 weeks' intrauterine , active spontaneous labor, protracted. POSTOPERATIVE DIAGNOSES: 41-3/7 weeks' intrauterine , active spontaneous labor, protracted. PROCEDURES: Pitocin augmentation of labor with artificial rupture of membranes, term spontaneous vaginal delivery. PRIMARY SURGEON: Birgit Maynard M.D. ANESTHESIA: Epidural. ESTIMATED BLOOD LOSS: Less than 200 mL. FINDINGS: Liveborn female. score of 9 and 9. Weight is pending at the time of dictation. Placenta spontaneous. Schultze intact with 3 vessels. Perineum intact. COMPLICATIONS: None known. DISPOSITION: Mother and baby are in LDR in good condition. INDICATION: This is a 24-year-old female. She is G3, P2. She presents at 41-3/7 weeks' gestation, in active spontaneous labor. Category 1 heart tones. She progressed to 5 cm. She received an epidural for pain control. She was then 8 cm dilated. Artificial rupture of membranes was performed. However, she had excellent pain control with the epidural, but no further progress beyond 8 cm. Therefore, Pitocin augmentation was initiated, and she progressed to complete. DESCRIPTION OF PROCEDURE: With the patient in dorsal lithotomy position with adequate epidural analgesia, the patient pushed over a 15-minute time period to a 5+ station, at which time, the head was delivered spontaneously and atraumatically over the perineum with support with subsequent delivery of the 's shoulders and body without any difficulty. The was bulb suctioned by nose and mouth. After the cord had ceased to pulsate, it was doubly clamped and cut. The infant was handed to the mother in the presence of the nurse attending delivery. The was a liveborn female with score of 9 and 9. Weight pending. Cord blood was collected for cord ABGs as well as routine cord blood sampling. Pitocin was initiated after delivery of the to assist with delivery of the placenta, which was delivered spontaneously. Schultze intact with 3 vessels. Upon inspection of the pelvis and perineum, there were no periurethral, vaginal sidewall, cervical, rectal, or perineal lacerations. EBL was less than 300 mL. There were no known complications. Mother and baby remained in LDR in good condition. SATURNINO / CHASITY /[id number]
[2020-02-24] MEDS: Ibuprofen 800 MG Tab PO PRN (21:12)
[2020-02-25] MEDS: Ibuprofen 800 MG Tab PO PRN (03:09)
--- NOTE | 2020-02-25 07:15 | PCM48HPAN ---
Post Anesthesia Note - EVALUATION WITHIN 48HRS OF ANESTHETIC Vital Signs in Normal Range: Yes Patient Participated in Evaluation: Yes Respiratory Function Stable: Yes Airway Patent: Yes Cardiovascular Function Stable: Yes Hydration Status Stable: Yes Pain Control Satisfactory: Yes Nausea and Vomiting Control Satisfactory: Yes Mental Status Recovered: Yes Vital Signs: Last Vital Signs Temp 36.3 C 02/25/20 04:02 Pulse 60 02/25/20 04:02 Resp 15 02/25/20 04:02 BP 117/71 02/25/20 04:02 Pulse Ox 95 02/25/20 04:02 - COMMENTS/OBSERVATIONS Free Text/Narrative:: Progressing well.
--- NOTE | 2020-02-25 09:19 | PCM.PNPP ---
- General Info Date of Service: 02/25/20 Functional Status: Reports: Pain Controlled - Review of Systems General: Reports: No Symptoms HEENT: Reports: No Symptoms Pulmonary: Reports: No Symptoms Cardiovascular: Reports: No Symptoms Gastrointestinal: Reports: No Symptoms Genitourinary: Reports: No Symptoms Musculoskeletal: Reports: No Symptoms Skin: Reports: No Symptoms Neurological: Reports: No Symptoms Psychiatric: Reports: No Symptoms - Patient Data Vital Signs - Most Recent: Last Vital Signs Temp 36.2 C 02/25/20 07:56 Pulse 60 02/25/20 07:56 Resp 16 02/25/20 07:56 BP 112/68 02/25/20 07:56 Pulse Ox 97 02/25/20 07:56 Weight - Most Recent: 72.121 kg Lab Results - Last 24 Hours: Laboratory Results - last 24 hr 02/24/20 02/25/20 Range/Units 11:14 05:57 Hgb 11.6 L (12.0-16.0) g/dL Hct 35.1 L (36.0-46.0) % Cord ABG pH 7.294 (7.18-7.38) Cord ABG Base Excess -1 H (-10--2) Cord VBG pH 7.308 (7.25-7.45) Cord VBG Base Excess -2 (-10--2) Med Orders - Current: Current Medications Acetaminophen (Tylenol Extra Strength) 500 mg PO Q4H PRN PRN Reason: Pain Acetaminophen (Tylenol Extra Strength) 1,000 mg PO Q4H PRN PRN Reason: Pain Benzocaine/Menthol (Dermoplast Pain Relief 20%-0.5% [place]) 78 gm TOP ASDIRECTED PRN PRN Reason: Perineal Comfort Measure Bisacodyl (Dulcolax) 10 mg RECTAL ONETIME PRN PRN Reason: Constipation Docusate Sodium (Colace) 100 mg PO BID PRN PRN Reason: Constipation Emollient Ointment (Lansinoh Hpa) 0 gm TOP ASDIRECTED PRN PRN Reason: Sore Nipples Tranexamic Acid 1,000 mg/ (Sodium Chloride) 110 mls @ 660 mls/hr IV ONETIME PRN PRN Reason: Bleeding Ibuprofen (Motrin) 400 mg PO Q4H PRN PRN Reason: Pain Ibuprofen (Motrin) 800 mg PO Q6H PRN PRN Reason: Pain Last Admin: 02/25/20 03:09 Dose: 800 mg Methylergonovine Maleate (Methergine) 0.2 mg IM ONETIME PRN PRN Reason: Excessive Vaginal Bleeding Witch Zara (Tucks) 1 pad TOP ASDIRECTED PRN PRN Reason: comfort care Discontinued Medications Butorphanol Tartrate (Stadol) 1 mg IVPUSH Q1H PRN PRN Reason: Pain Carboprost Tromethamine (Hemabate Ds) 250 mcg IM ASDIRECTED PRN PRN Reason: Post Hemorrhage Ephedrine Sulfate (Ephedrine Sulfate) Confirm Administered Dose 50 mg .ROUTE .RUST-MED ONE Stop: 02/24/20 06:12 Last Admin: 02/24/20 07:11 Dose: 5 mg Tranexamic Acid 1,000 mg/ (Sodium Chloride) 110 mls @ 660 mls/hr IV ONETIME PRN PRN Reason: Bleeding Lactated Ringer's (Ringers, Lactated) 1,000 mls @ 150 mls/hr IV ASDIRECTED [facility] Last Admin: 02/24/20 07:51 Dose: 500 mls/hr Oxytocin/Sodium Chloride (Oxytocin 30 Unit/500 Ml-Ns) 30 unit in 500 mls @ 999 mls/hr IV TITRATE [facility] Oxytocin/Sodium Chloride (Oxytocin 30 Unit/500 Ml-Ns) 30 unit in 500 mls @ 2 mls/hr IV TITRATE [facility]; Protocol Last Titration: 02/24/20 10:02 Dose: 4 munits/min, 4 mls/hr Lidocaine HCl (Xylocaine 1%) 50 ml INJECT ONETIME PRN PRN Reason: Laceration repair Methylergonovine Maleate (Methergine) 0.2 mg IM ASDIRECTED PRN PRN Reason: Post Hemorrhage Misoprostol (Cytotec) 200 mcg PO ONETIME PRN PRN Reason: Post Hemorrhage Nalbuphine HCl (Nubain) 10 mg IVPUSH Q1H PRN PRN Reason: Pain (severe 7-10) Sodium Chloride (Saline Flush) 10 ml FLUSH ASDIRECTED PRN PRN Reason: Keep Vein Open Sodium Chloride (Saline Flush) 2.5 ml FLUSH ASDIRECTED PRN PRN Reason: Keep Vein Open Sodium Chloride (Normal Saline) 10 ml IV ASDIRECTED PRN PRN Reason: IV Use Sterile Water (Sterile Water For Irrigation) 1,000 ml IRR ASDIRECTED PRN PRN Reason: delivery - Infant Interaction Infant Disposition, : in Room with Family Interaction: Holding Infant Infant Feeding: Breastfed ; Nursed Well Support Person: Significant Other - Recovery Exam Fundal Tone: Firm Fundal Level: At Umbilicus Fundal Placement: Midline Lochia Amount: Scant Lochia Color: Rubra/Red Perineum Description: Intact, Minimal Bruising/Swelling Episiotomy/Laceration: None Bladder Status: Voiding Urinary Elimination: Voided - Exam General: Alert, Oriented HEENT: Pupils Equal Lungs: Normal Respiratory Effort GI/Abdominal Exam: Soft, Non-Tender, No Distention, No Mass Extremities: Normal Inspection, Non-Tender, No Pedal Edema Skin: Warm, Dry, Intact Neurological: No New Focal Deficit Psy/Mental Status: Alert, Normal Affect, Normal Mood - Problem List & Annotations (1) Vaginal delivery SNOMED Code(s): 922523085 Code(s): O80 - ENCOUNTER FOR FULL-TERM UNCOMPLICATED DELIVERY Status: Acute Current Visit: No - Problem List Review Problem List Initiated/Reviewed/Updated: Yes - My Orders Last 24 Hours: My Active Orders 02/24/20 11:36 Patient Status [ADT] Routine May Shower [RC] ASDIRECTED Up ad Zhane [RC] ASDIRECTED Vital Signs [RC] PER UNIT ROUTINE Acetaminophen [Tylenol Extra Strength] 1,000 mg PO Q4H PRN Acetaminophen [Tylenol Extra Strength] 500 mg PO Q4H PRN Benzocaine/Menthol [Dermoplast Pain Relief 20%-0.5% [place]] 78 gm TOP ASDIRECTED PRN Docusate Sodium [Colace] 100 mg PO BID PRN Ibuprofen [Motrin] 400 mg PO Q4H PRN Ibuprofen [Motrin] 800 mg PO Q6H PRN Lanolin [Lansinoh HPA] See Dose Instructions TOP ASDIRECTED PRN Methylergonovine [Methergine] 0.2 mg IM ONETIME PRN Tranexamic Acid [Cyklokapron] 1,000 mg Sodium Chloride 0.9% [Normal Saline] 100 ml IV ONETIME bisacodyL [Dulcolax] 10 mg RECTAL ONETIME PRN witch Zara [Tucks] 1 pad TOP ASDIRECTED PRN Assess Lochia [WOMSER] Per Unit Routine Assess Uterine Involution [WOMSER] Per Unit Routine Peripheral IV Discontinue [OM.PC] Routine Resuscitation Status Routine 02/24/20 11:37 Perineal Care [OM.PC] Per Unit Routine 02/24/20 Lunch Regular Diet [DIET] - Assessment Assessment:: day 1 after , stable minimal lochia, tolerating regular diet. Dismiss to home - Plan Plan:: Discharge instructions reviewed.
== END 2020-02-25 13:23 | disposition home or self-care (01) | DRG 807 ==
LOC: MW.OBCHECK 03:41 → MW.OB 03:44 → MW.OBCHECK 05:24 → OBSVTOIN 11:36 → MW.OB 15:22
PROVIDERS: ADMIT Obstetrics & Gynecology; ATTEND Obstetrics & Gynecology
PROC: 10E0XZZ Delivery of Products of Conception, External Approach (ICD-10-PCS; principal; 2020-02-24)
PROC: 10907ZC Drainage of Amniotic Fluid, Therapeutic from Products of Conception, Via Natural or Artificial Opening (ICD-10-PCS; 2020-02-24)
PROC: 3E0R3BZ Introduction of Anesthetic Agent into Spinal Canal, Percutaneous Approach (ICD-10-PCS; 2020-02-24)
DX: O48.0 Post-term pregnancy (principal); Z37.0 Single live birth; Z3A.41 41 weeks gestation of pregnancy
CPT/HCPCS: 36415; 59025; 59409; 82803; 85014; 85018; 85027; 86592; 86593; 86850; 86900; 86901; A9270-GY; J2590; J7120